=== PATIENT | female | born 1980 | race Caucasian/White ===

== ENCOUNTER 2019-06-21 06:29 | Emergency (ER) | payer SELFPAY ==
[2019-06-21 06:56] LABS: URINE APPEARANCE CLEAR; URINE BILIRUBIN NEGATIVE (NEGATIVE); URINE BLOOD NEGATIVE (NEGATIVE); URINE COLOR YELLOW; URINE GLUCOSE (UA) NEGATIVE (NEGATIVE); URINE KETONE NEGATIVE (NEGATIVE); URINE LEUKOCYTE ESTERASE NEGATIVE (NEGATIVE); URINE NITRITE NEGATIVE (NEGATIVE); URINE PROTEIN NEGATIVE (NEGATIVE); URINE UROBILINOGEN 0.2 E.U./dL (0.20 - 1.00)
[2019-06-21 07:00] LABS: HCG,QUALITATIVE URINE NEGATIVE (NEGATIVE)
[2019-06-21] MEDS ORDERED: 0.9 % SODIUM CHLORIDE 1,000 ML BAG IV ONE (07:07)
[2019-06-21] MEDS ORDERED: ACETAMINOPHEN 1,000 MG/100 ML BTL IVPB ONE (07:12)
[2019-06-21] MEDS ORDERED: ONDANSETRON HCL IV 4 MG/2 ML VIAL IVP ONE (07:12)
--- NOTE | 2019-06-21 07:14 | Emergency Department Record ---
History of Present Illness - General Chief Complaint: Abdominal Pain Stated Complaint: ABDOMINAL PAIN Time Seen by Provider: 06/21/19 07:01 Source: Patient Mode of Arrival: Ambulatory Limitations: No limitations - History of Present Illness Initial Comments: The patient is here due to diffuse AP for the last 16 hours. The pain is all over and aching and associated with nausea but no vomiting. She denies any diarrhea, fever, dysuria, or back pain. The patient has had similar issues when she was told her stomach makes to much acid. She has no hx of any abdominal surgeries MD Complaint: Abdominal pain Onset/Timin -: Hour(s) Location: LUQ, RUQ Radiation: None Severity: Moderate Severity scale (1-10): 8 Quality: Aching, Fullness Consistency: Constant Improves With: Nothing Worsens With: Rest - Related Data LMP Date: 06/06/19 Patient : No Home Medications Medication Instructions Recorded Confirmed Last Taken Omeprazole 1 tab PO DAILY 06/21/19 06/21/19 06/20/19 Previous Rx's Medication Instructions Recorded Sucralfate [Carafate] 1 gm PO QID #28 tablet 06/21/19 Allergies Allergy/AdvReac Type Severity Reaction Status Date / Time No Known Drug Allergies Allergy Verified 06/21/19 06:46 Travel Screening - Travel/Exposure Within Last 30 Days Have you traveled within the last 30 days?: No - Travel/Exposure Within Last Year Have you traveled outside the [place] in the last year?: No - Additonal Travel Details Have you been exposed to anyone with a communicable illness?: No - Travel Symptoms Symptom Screening: None Past Medical History - SOCIAL HISTORY Smoking Status: Never smoker Alcohol Use: Rare Drug Use: None - RESPIRATORY Hx Respiratory Disorders: Yes Hx Asthma: Yes - CARDIOVASCULAR Hx Cardio Disorders: No - NEURO Hx Neuro Disorders: No - GI Hx GI Disorders: Yes Hx Pancreatitis: Yes (pancreatic cyst) - Hx Genitourinary Disorders: Yes Hx Kidney Stones: Yes - PSYCH Hx Psych Problems: Yes Hx Anxiety: Yes Family Medical History Any Significant Family History?: Yes Hx Diabetes: Grandparents Hx Heart Disease: Grandparents Hx HTN: Father Physical Exam - General General Appearance: Alert, Oriented x3, Cooperative, No acute distress - Head Head exam: Atraumatic, Normocephalic, Normal inspection - Eye Eye exam: Normal appearance, PERRL - ENT Throat exam: Normal inspection. negative: Tonsillar erythema, Tonsillar exudate - Neck Neck exam: Normal inspection, Full ROM. negative: Tenderness - Respiratory Respiratory exam: Normal lung sounds bilaterally. negative: Respiratory distress - Cardiovascular Cardiovascular Exam: Regular rate, Normal rhythm, Normal heart sounds - GI/Abdominal GI/Abdominal exam: Soft, Normal bowel sounds, Tenderness (There is diffuse mild tenderness in all 4 quads greatest in the upper abdomen. There is no guarding or rebound.). negative: Guarding, Rebound, Rigid - Extremities Extremities exam: Normal inspection, Full ROM, Normal capillary refill. negative: Tenderness - Neurological Neurological exam: Alert, Normal gait. negative: Abnormal gait, Motor sensory deficit - Psychiatric Psychiatric exam: negative: Anxious Course Vital Signs 06/21/19 06:35 Temperature 98.7 F Pulse Rate [ 108 H Pulse Ox Probe] Respiratory 20 Rate Blood Pressure 97/73 [Left Arm] Pulse Ox 95 - Reevaluation(s) Reevaluation #1: The patient is feeling better at this time. She is feeling hungry and her temp is 98.5. I did discuss the case with Dr. Alcala (Gen Surg) and he does agree with the plan to discharge and recheck tomorrow morning. The patient understands the plan and will return tomorrow. On exam her abdomen is very soft with only minimal upper abdominal tenderness. There is no significant RLQ tenderness. 06/21/19 08:49 Medical Decision Making - Data Complexity MDM Data: Labs Ordered and/or Reviewed, X-Ray Ordered and/or Reviewed - Lab Data Result diagrams: 06/21/19 07:35 06/21/19 07:35 Lab Results 06/21/19 Range/Units 06:48 Urine Color Yellow Urine Appearance Clear Urine pH 6.5 (5.0-8.0) Ur Specific [place] 1.010 (1.002-1.030) Urine Protein Negative (NEGATIVE) Urine Glucose (UA) Negative (NEGATIVE) Urine Ketones Negative (NEGATIVE) Urine Blood Negative (NEGATIVE) Urine Nitrite Negative (NEGATIVE) Urine Bilirubin Negative (NEGATIVE) Urine Urobilinogen 0.2 (0.20 - 1.00) E.U./dL Ur Leukocyte Esterase Negative (NEGATIVE) Urine HCG, Qual Negative (NEGATIVE) - Radiology Data Radiology results: Report reviewed (CT: Neg for acute changes. The appendix is mildly dilated to 9.6 mm proximally but there is no inflammatory changes surrounding it. Neg for appendicolith.) Disposition Disposition: Discharge Clinical Impression: Abdominal pain Qualifiers: Abdominal location: unspecified location Qualified Code(s): R10.9 - Unspecified abdominal pain Disposition: Home, Self-Care Condition: (2) Stable Instructions: Abdominal Pain (ED) Additional Instructions: Please use Tylenol for pain and please take the Carafate as directed. Please return to the ER tomorrow morning for recheck and return sooner for any worsening pain, fever, or vomiting. Please eat a liquid diet today. Prescriptions: Sucralfate [Carafate] 1 gm PO QID #28 tablet Forms: Patient Portal Access Time of Disposition: 08:52 Quality - Quality Measures Quality Measures: N/A - Blood Pressure Screening View Details: Yes Does Patient Have Any of the Following: No Blood Pressure Classification: Normal BP Reading Systolic Measurement: 110 Diastolic Measurement: 72 Screening for High Blood Pressure: < Normal BP, F/U Not Required > [[id number]]
[2019-06-21 07:44] LABS: ABSOLUTE NEUTROPHIL COUNT 6.98; HEMATOCRIT 42.7 % (35.0-47.0); HEMOGLOBIN 13.6 gm/dl (11.6-16.0); MEAN CELL VOLUME 90.9 fl (81-97); MEAN CORPUSCULAR HEMOGLOBIN 28.9 pg (27-33); MEAN CORPUSCULAR HGB CONC 31.9 g/dl (32-36); PLATELET COUNT 332 K/uL (130-400); RED CELL DISTRIBUTION WIDTH 12.9 % (11.5-14.5); WHITE BLOOD COUNT W/O DIFF 8.2 K/uL (4.2-12.2)
[2019-06-21 07:52] LABS: PLATELET ESTIMATE NORMAL (NORMAL)
[2019-06-21 07:57] LABS: BLOOD UREA NITROGEN 11 mg/dL (6-20); CREATININE 0.8 mg/dL (0.5-0.9); EST GLOMERULAR FILTRATION RATE > 60 mL/min
[2019-06-21 07:58] LABS: LIPASE 23 U/L (13-60); TOTAL PROTEIN 7.3 g/dL (6.6-8.7)
[2019-06-21 08:00] LABS: GLUCOSE,RANDOM 100 mg/dL (74-109)
[2019-06-21] MEDS ORDERED: ONDANSETRON 4 MG ODT TABLET SL ONE (08:01)
[2019-06-21 08:02] LABS: ALT/SGPT 12 U/L (<33); BILIRUBIN,DIRECT 0.2 mg/dL (0-0.3)
[2019-06-21 08:03] LABS: ALBUMIN 4.1 g/dL (4.0-5.0); ALKALINE PHOSPHATASE 66 U/L (35-104); AST/SGOT 13 U/L (10.0-35.0)
[2019-06-21] MEDS ORDERED: KETOROLAC 30 MG/ML VIAL IM ONE (08:07)
[2019-06-21] MEDS ORDERED: MAGNESIUM HYDROXIDE/AL HYDROX 30 ML, LIDOCAINE VISC 2% 15ML 15 ML PO ONE ×2 (08:08)
--- NOTE | 2019-06-21 08:18 | CT SCAN REPORT ---
EXAMINATION: ABDOMEN/PELVIS WO CONTRAST EXAM DATE: 06/21/2019 8:01 AM TECHNIQUE: Noncontrast helical imaging of the abdomen and pelvis. INDICATION: Upper ap abdominal pain. Problem for 17 hours. COMPARISON: None FINDINGS: Lung base levels: No pleural fluid. No pulmonary abnormality. Liver: Unremarkable noncontrast appearance Gallbladder: Present Spleen: Not enlarged Adrenal glands: Not enlarged Pancreas: Unremarkable noncontast appearance. Vascular: Abdominal aorta is not enlarged. atherosclerotic disease. Retroperitoneum: Small number of borderline enlarged mid abdominal retroperitoneal lymph nodes. Mesentery: No lymphadenopathy. Right kidney: No hydronephrosis. Nonobstructive calculus at the interpole level, 1.8 mm. Right ureter: There is no right hydroureter. There is no right ureteral calculus. Left kidney: No hydronephrosis. Nonobstructive calculus at the lower pole level measuring 3.5 mm. Left ureter: There is no left hydroureter. There is no left ureteral calculus. Bladder: There is no bladder calculus. Abdominal/pelvic wall: Negative. Fluid: Minimal fluid in the pelvic cul-de-sac within physiologic limits. Appendix: There is enlargement of the appendix proximally, measuring 9.6 mm in diameter. There is no adjacent inflammatory change or fluid. Bowel: No dilated bowl. No diverticulosis or evidence for diverticulitis. Multiple small bowel loops are borderline dilated measuring up to 2 cm. Other pelvic: No additional findings. Osseous structures: No acute abnormality. No lytic or sclerotic lesion. Disc space narrowing and sli ght spurring at L4-5 consistent with disc disease. Further evaluation of the abdomen and pelvis is limited without IV or oral contrast. IMPRESSION: Diameter of the appendix is mildly increased at proximal levels, 9.6 mm. No associated inflammatory c hange or fluid. If clinical suspicion for acute appendicitis, repeat CT imaging in 24 to 48 hours cou ld be considered. Borderline dilatation of multiple loops of small bowel measuring 2 cm or less, nonspecific. This coul d possibly be seen with gastroenteritis or with subtle early/mild ileus. Bilateral nonobstructive renal calculi. No obstructive uropathy. Dictated by: Osvaldo Liang MD on 06/21/2019 8:03 AM. .
[2019-06-21] MEDS ORDERED: SUCRALFATE 1 G/10 ML UD PO ONE (08:36)
== END 2019-06-21 09:00 | disposition home or self-care (01) ==
LOC: ER 06:29
DX: R10.84 Generalized abdominal pain (principal); R11.0 Nausea
CPT/HCPCS: 99284 ×2; 96372; 83690; 80076; 80048; 81003; 81025; 85027; 74176; J1885